=== PATIENT | male | born 1995 | race Caucasian/White ===

== ENCOUNTER 2018-04-22 01:32 | Emergency (ER) | payer BC ==
[2018-04-22] MEDS ORDERED: Acetaminophen 500 MG Tab PO ONE (02:13)
[2018-04-22] MEDS ORDERED: Ketorolac 60 MG/2 ML SDV IM ONE (02:13)
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
[2018-04-22 02:35] VITALS: BP 128/76
== END 2018-04-22 02:35 | disposition home or self-care (01) ==
LOC: FB.ED 01:32
DX: S13.4XXA Sprain of ligaments of cervical spine, initial encounter (principal); F17.210 Nicotine dependence, cigarettes, uncomplicated; V49.9XXA Car occupant (driver) (passenger) injured in unspecified traffic accident, initial encounter
CPT/HCPCS: 29125; 96372; 99283; A9270-GY; J1885